=== PATIENT | female | born 1995 | race Two or more races ===

== ENCOUNTER 2022-12-23 13:26 | Emergency (ER) | payer OTHER ==
[~2022-12-23] VITALS: Ht 172.7 cm; Wt 56.7 kg
[2022-12-23 13:31] VITALS: O2SAT 100
[2022-12-23 13:34] VITALS: BP 134/79; PULSE 76; RESP 16; TEMP 98.5
[2022-12-23] MEDS ORDERED: CICL6.6S22 TP (14:08)
== END 2022-12-23 14:17 | disposition home or self-care (01) ==
LOC: ER 13:26
DX: F90.9 Attention-deficit hyperactivity disorder, unspecified type (principal); Z00.00 Encounter for general adult medical examination without abnormal findings
CPT/HCPCS: 99283